=== PATIENT | female | born 1980 | race American Indian/Alaskan Native ===

== ENCOUNTER 2016-12-31 09:07 | Inpatient (IN) | payer MEDICAID, OTHER ==
[2016-12-31] MEDS ORDERED: Penicillin G Potassium 5,000,000 Unit Vial ONE (09:17)
[2016-12-31] MEDS ORDERED: Penicillin G Potassium 5 MILLUNITS in Sodium Chloride 0.9% 100 ML IV ONE (09:43)
[2016-12-31] MEDS ORDERED: Oxytocin/Normal Saline 30 UNIT/500 ML BAG IV SCH (09:45)
[2016-12-31] MEDS ORDERED: Lactated Ringers 1,000 ML IV SCH ×2 (09:45→12:00)
[2016-12-31] MEDS ORDERED: Methylergonovine 0.2 MG/1 ML Amp ONE (10:18)
[2016-12-31] MEDS ORDERED: Carboprost Tromethamine 250 MCG/1 ML Amp ONE (10:18)
[2016-12-31] MEDS ORDERED: Misoprostol 400 MCG (4 X 100 MCG TAB) ONE (10:18)
[2016-12-31] MEDS ORDERED: Acetaminophen 325 MG Tab PO PRN (11:56)
[2016-12-31] MEDS ORDERED: Ondansetron 4 MG/2 ML SDV IV PRN (11:56)
[2016-12-31] MEDS ORDERED: Sodium Chloride 0.9% 10 ML Syringe FLUSH PRN (11:56)
[2016-12-31] MEDS ORDERED: Misoprostol 400 MCG (4 X 100 MCG TAB) RECTAL PRN (11:56)
[2016-12-31] MEDS ORDERED: Methylergonovine 0.2 MG/1 ML Amp IM PRN (11:56)
[2016-12-31] MEDS ORDERED: Benzocaine/Menthol 20%-0.5% Spray 56 GM Canister TOP PRN (12:04)
[2016-12-31] MEDS ORDERED: Zolpidem 5 MG Tab PO PRN (12:04)
[2016-12-31] MEDS ORDERED: Simethicone 80 MG Tab.Chew PO PRN (12:04)
--- NOTE | 2016-12-31 12:14 | PCM.LDHP ---
L&D History of Present Illness - General Date of Service: 12/31/16 Admit Problem/Dx: Patient Status Order with Admit Dx/Problem 12/31/16 11:56 Patient Status [ADT] Routine Admission Diagnosis/Problem Admission Diagnosis/Problem Labor established 12/31/16 12:09 by [facility] with onset labor contractions @ 4am and leaking fluid 430 am. Source of Information: Patient, EMS, Family, Old Records History Limitations: Reports: No Limitations - History of Present Illness Location, : Reports: Uterus Severity: Moderate Associated Symptoms: Reports: vaginal fluid - Related Data Allergies/Adverse Reactions: Allergies Allergy/AdvReac Type Severity Reaction Status Date / Time methocarbamol Allergy Difficulty Verified 12/11/16 13:49 Swallowing Home Medications: Home Meds Acetaminophen [Tylenol] 650 mg PO Q4H PRN #60 tablet 09/10/13 [Rx] Vit W-Ca,Fe,FA(<1 mg) [ Vitamins] 1 each PO DAILY 12/15/15 [ History] Ferrous Sulfate 2 tab PO BID 12/11/16 [History] Past Medical History - Past Health History Medical/Surgical History: Denies Medical/Surgical History Cardiovascular History: Reports: Hypertension Gastrointestinal History: Reports: Hepatitis (Past Hep C) Genitourinary History: Reports: UTI, Recurrent Other Genitourinary History: pt reports renal failure GASTROENTEROLOGY PHYSICIAN History: Reports: , Spontaneous : 11 Para: 9 ([id number]) Other OB/BYN History: see [facility] and [facility] notes and episode for details. hmb Neurological History: Reports: Brain Injury, Headaches, Chronic Other Neuro History: Chronic Headache Psychiatric History: Reports: Addiction Hematologic History: Reports: Anemia, Blood Transfusion(s) - Infectious Disease History Infectious Disease History: Reports: Chicken Pox, Hepatitis C - Past Surgical History HEENT Surgical History: Reports: Other (See Below) Other HEENT Surgeries/Procedures: nasal fracture GI Surgical History: Reports: Cholecystectomy Dermatological Surgical History: Reports: None - History Comment History Comment: see [facility] records for details. Social & Family History - Family History Family Medical History: Noncontributory (see [facility] nots) Cardiac: Reports: Hypertension, HI Musculoskeletal: Reports: Arthritis Neurological: Reports: CVA Endocrine/Metabolic: Reports: Diabetes, type II - Tobacco Use Smoking Status *Q: Former Smoker Years of Tobacco use: 1 Used Tobacco, but Quit: Yes Month Tobacco Last Used: 10/2012 Second Hand Smoke Exposure: No - Caffeine Use Caffeine Use: Reports: Coffee (one drink every so often), Soda - Alcohol Use Days Per Week of Alcohol Use: 0 - Recreational Drug Use Recreational Drug Use: No Drug Use in Last 12 Months: Yes Recreational Drug Type: Reports: Marijuana/Hashish Recreational Drug Use Frequency: Not Used In Over 1 Month - Living Situation & Occupation Living situation: Reports: Other (Currently living with boyfriend and some of her children at her cousins place of residence. States she is working toward her GED.) Occupation: Employed ([employer]) H&P Review of Systems - Review of Systems: Review Of Systems: ROS reveals no pertinent complaints other than HPI. L&D Exam - Exam Exam: See Below - Vital Signs Weight: 181 lb - OB Specific Contraction Intensity: Mild to Moderate Movement: Active Heart Tones: Present Heart Tones per Min: 140 Heart Rate (FHR) Variability: Moderate (6-25 bmp) Presentation: Vertex Estimated Weight: AGA - Exam General: Alert, Oriented HEENT: Pupils Equal, Pupils Reactive Neck: Supple Lungs: Clear to Auscultation, Normal Respiratory Effort Cardiovascular: Regular Rate, Regular Rhythm GI/Abdominal Exam: Normal Bowel Sounds, Soft, Non-Tender Back Exam: Normal Inspection Extremities: Normal Inspection Skin: Warm, Dry, Intact Neurological: Normal Speech, Normal Tone, Sensation Intact Psychiatric: Normal Affect, Normal Mood - Patient Data Lab Results Last 24 hrs: Laboratory Results - last 24 hr 12/31/16 Range/Units 10:10 WBC 12.3 H (5.0-10.0) 10^3/uL RBC 4.71 (4.2-5.4) 10^6/uL Hgb 10.3 L (12.0-16.0) g/dL Hct 33.7 L (37.0-47.0) % MCV 71.5 L (80-100) fL MCH 21.9 L (27.0-34.0) pg MCHC 30.6 L (33.0-35.0) g/dL Plt Count 357 (150-450) 10^3/uL Result Diagrams: 12/31/16 10:10 - Problem List (1) Labor and delivery complicated by meconium in amniotic fluid SNOMED Code(s): 849367728 ICD Code: O77.0 - LABOR AND DELIVERY COMPLICATED BY MECONIUM IN AMNIOTIC FLUID Status: Acute Current Visit: Yes (2) Labor established SNOMED Code(s): 30736431 ICD Code: LVT8727 - Status: Acute Current Visit: Yes (3) Labor, precipitous, delivered SNOMED Code(s): 367218069 ICD Code: O62.3 - PRECIPITATE LABOR Status: Acute Current Visit: Yes Problem List Initiated/Reviewed/Updated: Yes Orders Last 24hrs: Active Orders 24 hr Category Date Time Status Patient Status [ADT] Routine ADT 12/31/16 11:56 Ordered Communication Order [RC] ASDIRECTED Care 12/31/16 11:56 Ordered Heart Tones [RC] PER UNIT ROUTINE Care 12/31/16 11:56 Ordered Notify Provider Vital Signs OB [RC] ASDIRECTED Care 12/31/16 11:56 Ordered Notify Provider [RC] PRN Care 12/31/16 11:56 Ordered Up ad Faith [RC] ASDIRECTED Care 12/31/16 11:56 Ordered Vital Signs [RC] PER UNIT ROUTINE Care 12/31/16 11:56 Ordered Consult to Human Factors Engineer [CONS] Routine Cons 12/31/16 12:04 Ordered Regular Diet [DIET] Diet 12/31/16 Lunch Ordered DRUG SCREEN URINE BIORAD [URCHEM] Routine Lab 12/31/16 11:56 Uncollected Acetaminophen [Tylenol] Med 12/31/16 11:56 Ordered 650 mg PO Q4H PRN Benzocaine/Menthol [Dermoplast Pain Relief [place]] Med 12/31/16 12:04 Ordered See Dose Instructions TOP Q4H PRN Docusate Sodium [Colace] Med 12/31/16 12:04 Ordered 100 mg PO BID PRN Ibuprofen [Motrin] Med 12/31/16 12:04 Ordered 800 mg PO Q8H PRN Lactated Ringers @ 125 MLS/HR(1000ml) Med 12/31/16 12:00 Ordered Lactated Ringers [Ringers, Lactated] 1,000 ml IV ASDIRECTED Lactated Ringers [Ringers, Lactated] 1,000 ml Med 12/31/16 09:45 Active IV ASDIRECTED Methylergonovine [Methergine] Med 12/31/16 11:56 Ordered 0.2 mg IM ASDIRECTED PRN Misoprostol [Cytotec] Med 12/31/16 11:56 Ordered 800 mcg RECTAL ASDIRECTED PRN Ondansetron [Zofran] Med 12/31/16 11:56 Ordered 4 mg IV Q4H PRN Oxytocin/Normal Saline [Pitocin in NS 30 UNIT/500 ML] Med 12/31/16 09:45 Active 30 unit in 500 ml IV TITRATE Vit with Ca/FA/Iron [ Plus Iron] Med 01/01/17 09:00 Ordered 1 each PO DAILY Simethicone Med 12/31/16 12:04 Ordered 80 mg PO Q4H PRN Sodium Chloride 0.9% [Saline Flush] Med 12/31/16 11:56 Ordered 10 ml FLUSH ASDIRECTED PRN Zolpidem [Ambien] Med 12/31/16 12:04 Ordered 5 mg PO BEDTIME PRN Assess Lochia [WOMSER] Per Unit Routine Oth 12/31/16 12:04 Ordered Assess Uterine Involution [WOMSER] Per Unit Routine Oth 12/31/16 12:04 Ordered Breast Pump [WOMSER] Per Unit Routine Oth 12/31/16 12:04 Ordered Ice Therapy [OM.PC] Per Unit Routine Oth 12/31/16 12:04 Ordered Perineal Care [OM.PC] Per Unit Routine Oth 12/31/16 12:04 Ordered Saline Lock Insert [OM.PC] Routine Oth 12/31/16 11:56 Ordered Sitz Bath [OM.PC] Per Unit Routine Oth 12/31/16 12:04 Ordered Resuscitation Status Routine Resus Stat 12/31/16 11:56 Ordered Medication Orders Acetaminophen (Tylenol) 650 mg PO Q4H PRN PRN Reason: Pain (Mild 1-3) and fever Benzocaine/Menthol (Dermoplast Pain Relief [place]) 0 gm TOP Q4H PRN PRN Reason: Perineal comfort measures Docusate Sodium (Colace) 100 mg PO BID PRN PRN Reason: Constipation Lactated Ringer's (Ringers, Lactated) 1,000 mls @ 125 mls/hr IV ASDIRECTED MARY Last Admin: 12/31/16 09:45 Dose: 125 mls/hr Oxytocin/Sodium Chloride (Pitocin In Ns 30 Unit/500 Ml) 30 unit in 500 mls @ 2 mls/hr IV TITRATE MARY; 2 MUNITS/MIN PRN Reason: Protocol Last Titration: 12/31/16 11:17 Dose: 250 munits/min, 250 mls/hr Admin: 12/31/16 10:56 Dose: 500 munits/min, 500 mls/hr Lactated Ringer's (Ringers, Lactated) 1,000 mls @ 125 mls/hr IV ASDIRECTED MARY Ibuprofen (Motrin) 800 mg PO Q8H PRN PRN Reason: Mild Pain or Fever Methylergonovine Maleate (Methergine) 0.2 mg IM ASDIRECTED PRN PRN Reason: Hemorrhage Misoprostol (Cytotec) 800 mcg RECTAL ASDIRECTED PRN PRN Reason: Hemorrhage Ondansetron HCl (Zofran) 4 mg IV Q4H PRN PRN Reason: Nausea/Vomiting Prenat Multivit/Rooks/Iron/Folic Ac ( Plus Iron) 1 each PO DAILY MARY Simethicone (Simethicone) 80 mg PO Q4H PRN PRN Reason: Gas Sodium Chloride (Saline Flush) 10 ml FLUSH ASDIRECTED PRN PRN Reason: Keep Vein Open Zolpidem Tartrate (Ambien) 5 mg PO BEDTIME PRN PRN Reason: Insomnia Assessment/Plan Comment:: Assessment/Plan: 36 yo NA , AMA 38w6d in active labor GBS positive--start PCN O + blood type Rubella immune Hep C + THC + in drug screen--will do mec screen on baby high risk hx prior demise/still born, delivery, transfusion reaction Marya admitted with routine admit orders. planning intrathecal start PCN. further management pending her course in labor. hmb
--- NOTE | 2016-12-31 12:25 | PCM.DEL ---
L & D Note - General Info Date of Service: 12/31/16 (time of 1042) Mother's Due Date: 01/08/17 - Delivery Note Labor: Spontaneous Delivery Outcome: Livebirth Infant Delivery Method: Spontaneous Vaginal Delivery-Single Infant Delivery Mode: Spontaneous Presentation: Vertex Nuchal Cord: None Anesthesia Type: None Amniotic Fluid Description: malodorous Episiotomy Type: None Laceration: None Cord: 3 Vessels Estimated Blood Loss: 100 Resuscitation Needed: No : Stimulated, Warmed Provider: Karla Seymour Score 1 min: 8 Score 5 min: 9 Delivery Comments (Free Text/Narrative):: precipitous vaginal delivery in bed, unmedicated, uncomplicated. baby to mother's chest for skin to skin contact. Induction Criteria - Augmentation Estimated Pelvis: Reports: Adequate Weight Estimated:: Reports: AGA Reassuring Monitoring Strip: Yes - General Info Date of Service: 12/31/16 Admission Dx/Problem (Free Text): Patient Status Order with Admit Dx/Problem 12/31/16 11:56 Patient Status [ADT] Routine Admission Diagnosis/Problem Admission Diagnosis/Problem Labor established 12/31/16 12:09 by [facility] with onset labor contractions @ 4am and leaking fluid 430 am. - Review of Systems General: Reports: No Symptoms HEENT: Reports: No Symptoms Pulmonary: Reports: No Symptoms Cardiovascular: Reports: No Symptoms Gastrointestinal: Reports: No Symptoms Genitourinary: Reports: No Symptoms Musculoskeletal: Reports: No Symptoms Skin: Reports: No Symptoms Neurological: Reports: No Symptoms Psychiatric: Reports: No Symptoms - Patient Data Weight - Most Recent: 181 lb Lab Results Last 24 Hours: Laboratory Results - last 24 hr 12/31/16 Range/Units 10:10 WBC 12.3 H (5.0-10.0) 10^3/uL RBC 4.71 (4.2-5.4) 10^6/uL Hgb 10.3 L (12.0-16.0) g/dL Hct 33.7 L (37.0-47.0) % MCV 71.5 L (80-100) fL MCH 21.9 L (27.0-34.0) pg MCHC 30.6 L (33.0-35.0) g/dL Plt Count 357 (150-450) 10^3/uL Med Orders - Current: Current Medications Acetaminophen (Tylenol) 650 mg PO Q4H PRN PRN Reason: Pain (Mild 1-3) and fever Benzocaine/Menthol (Dermoplast Pain Relief [place]) 0 gm TOP Q4H PRN PRN Reason: Perineal comfort measures Docusate Sodium (Colace) 100 mg PO BID PRN PRN Reason: Constipation Lactated Ringer's (Ringers, Lactated) 1,000 mls @ 125 mls/hr IV ASDIRECTED MARY Last Admin: 12/31/16 09:45 Dose: 125 mls/hr Oxytocin/Sodium Chloride (Pitocin In Ns 30 Unit/500 Ml) 30 unit in 500 mls @ 2 mls/hr IV TITRATE MARY; 2 MUNITS/MIN PRN Reason: Protocol Last Titration: 12/31/16 11:17 Dose: 250 munits/min, 250 mls/hr Lactated Ringer's (Ringers, Lactated) 1,000 mls @ 125 mls/hr IV ASDIRECTED MARY Ibuprofen (Motrin) 800 mg PO Q8H PRN PRN Reason: Mild Pain or Fever Methylergonovine Maleate (Methergine) 0.2 mg IM ASDIRECTED PRN PRN Reason: Hemorrhage Misoprostol (Cytotec) 800 mcg RECTAL ASDIRECTED PRN PRN Reason: Hemorrhage Ondansetron HCl (Zofran) 4 mg IV Q4H PRN PRN Reason: Nausea/Vomiting Prenat Multivit/[place]/Iron/Folic Ac ( Plus Iron) 1 each PO DAILY [facility] Simethicone (Simethicone) 80 mg PO Q4H PRN PRN Reason: Gas Sodium Chloride (Saline Flush) 10 ml FLUSH ASDIRECTED PRN PRN Reason: Keep Vein Open Zolpidem Tartrate (Ambien) 5 mg PO BEDTIME PRN PRN Reason: Insomnia Discontinued Medications Carboprost Tromethamine (Hemabate Ds) Confirm Administered Dose 250 mcg .ROUTE .STK-MED ONE Stop: 12/31/16 10:19 Penicillin G Potassium 5 (millunits/ Sodium Chloride) 100 mls @ 200 mls/hr IV ONETIME ONE Stop: 12/31/16 10:12 Last Admin: 12/31/16 09:45 Dose: 200 mls/hr Methylergonovine Maleate (Methergine) Confirm Administered Dose 0.2 mg .ROUTE .STK-MED ONE Stop: 12/31/16 10:19 Misoprostol (Cytotec) Confirm Administered Dose 400 mcg .ROUTE .STK-MED ONE Stop: 12/31/16 10:19 Penicillin G Potassium (Pfizerpen) Confirm Administered Dose 5 millunits .ROUTE .STK-MED ONE Stop: 12/31/16 09:18 Last Admin: 12/31/16 10:26 Dose: Not Given - Exam General: Alert, Oriented HEENT: Pupils Equal, Pupils Reactive, EOMI, Mucous Membr. Moist/[place] Neck: Supple Lungs: Clear to Auscultation, Normal Respiratory Effort Cardiovascular: Regular Rate, Regular Rhythm GI/Abdominal Exam: Normal Bowel Sounds, Soft, Non-Tender, No Organomegaly, No Distention, No Abnormal Bruit, No Mass, Pelvis Stable (Female) Exam: Normal External Exam, Normal Speculum Exam, Normal Bimanual Exam Back Exam: Normal Inspection, Full Range of Motion Extremities: Normal Inspection, Normal Range of Motion, Non-Tender, No Pedal Edema, Normal Capillary Refill Skin: Warm, Dry, Intact Wound/Incisions: Healing Well Neurological: No New Focal Deficit Psy/Mental Status: Alert, Normal Affect, Normal Mood - Problem List & Annotations (1) Labor and delivery complicated by meconium in amniotic fluid SNOMED Code(s): 662153179 Code(s): O77.0 - LABOR AND DELIVERY COMPLICATED BY MECONIUM IN AMNIOTIC FLUID Status: Acute Current Visit: Yes (2) Labor established SNOMED Code(s): 22297410 Code(s): UYC4781 - Status: Acute Current Visit: Yes (3) Labor, precipitous, delivered SNOMED Code(s): 811532503 Code(s): O62.3 - PRECIPITATE LABOR Status: Acute Current Visit: Yes - Problem List Review Problem List Initiated/Reviewed/Updated: Yes - My Orders Last 24 Hours: My Active Orders 12/31/16 09:45 Lactated Ringers [Ringers, Lactated] 1,000 ml IV ASDIRECTED Oxytocin/Normal Saline [Pitocin in NS 30 UNIT/500 ML] 30 unit in 500 ml IV TITRATE 12/31/16 11:56 Patient Status [ADT] Routine Communication Order [RC] ASDIRECTED Heart Tones [RC] PER UNIT ROUTINE Notify Provider Vital Signs OB [RC] ASDIRECTED Notify Provider [RC] PRN Up ad Faith [RC] ASDIRECTED Vital Signs [RC] PER UNIT ROUTINE DRUG SCREEN URINE BIORAD [URCHEM] Routine Acetaminophen [Tylenol] 650 mg PO Q4H PRN Methylergonovine [Methergine] 0.2 mg IM ASDIRECTED PRN Misoprostol [Cytotec] 800 mcg RECTAL ASDIRECTED PRN Ondansetron [Zofran] 4 mg IV Q4H PRN Sodium Chloride 0.9% [Saline Flush] 10 ml FLUSH ASDIRECTED PRN Saline Lock Insert [OM.PC] Routine Resuscitation Status Routine 12/31/16 12:00 Lactated Ringers @ 125 MLS/HR(1000ml) Lactated Ringers [Ringers, Lactated] 1, 000 ml IV ASDIRECTED 12/31/16 12:04 Consult to Backbreaker [CONS] Routine Benzocaine/Menthol [Dermoplast Pain Relief [place]] See Dose Instructions TOP Q4H PRN Docusate Sodium [Colace] 100 mg PO BID PRN Ibuprofen [Motrin] 800 mg PO Q8H PRN Simethicone 80 mg PO Q4H PRN Zolpidem [Ambien] 5 mg PO BEDTIME PRN Assess Lochia [WOMSER] Per Unit Routine Assess Uterine Involution [WOMSER] Per Unit Routine Breast Pump [WOMSER] Per Unit Routine Ice Therapy [OM.PC] Per Unit Routine Perineal Care [OM.PC] Per Unit Routine Sitz Bath [OM.PC] Per Unit Routine 12/31/16 Lunch Regular Diet [DIET] 01/01/17 09:00 Vit with Ca/FA/Iron [ Plus Iron] 1 each PO DAILY - Plan Plan:: Assessment/Plan: 36 yo NA , AMA 38w6d in active labor GBS positive--start PCN O + blood type Rubella immune Hep C + THC + in drug screen--will do mec screen on baby high risk hx prior demise/still born, delivery, transfusion reaction Marya admitted with routine admit orders. planning intrathecal start PCN. further management pending her course in labor. hmb Delivery info: delivered precipitously in bed: viable male, 5lb 12oz, 2630g APGARs 8 & 9 time of 1042 doing well. routine PP and mursery cares for mom and baby. skin to skin at mother's chest. consult. mec screen ordered. mother requesting discharge home tomorrow after 24 hours. Allq eustions answered. family happy with plan. b
[2016-12-31] MEDS: Ibuprofen 800 MG Tab PO PRN (15:05)
[2016-12-31] MEDS: Docusate Sodium 100 MG Cap PO PRN (19:32)
[2017-01-01] MEDS: Ibuprofen 800 MG Tab PO PRN ×3 (02:42→20:30)
[2017-01-01] MEDS: Prenatal Multivitamin with Calcium/Folic Acid/Iron Tab PO SCH (10:57)
--- NOTE | 2017-01-01 14:51 | PCM.SN ---
- Free Text/Narrative Note: DOS: 01-01-17 Marya is doing well PPD #1 s/p precipitous spontaneous vaginal delivery viable male. nursing and has seen portfolio consultant. flow decreased. eating, voiding and ambulating well. VSS afebrile. fundus firm skin warm and dry. She was considering going home later today, but has decided to stay until tomorrow, PPD #2. continue routine cares. will check CBC in a.m. likely discharge home tomorrow with baby. UDS negative on admit. All questions answered. hmb
[2017-01-01] MEDS: Docusate Sodium 100 MG Cap PO PRN (20:30)
[2017-01-02] MEDS: Ibuprofen 800 MG Tab PO PRN (05:04)
[2017-01-02] MEDS: Prenatal Multivitamin with Calcium/Folic Acid/Iron Tab PO SCH (08:26)
[2017-01-02 11:45] VITALS: BP 112/59
--- NOTE | 2017-05-10 07:19 | DISCH ---
DIAGNOSES: 1. A 36-year-old 11, para 9-1-1-9. 2. Advanced maternal age. 3. 38 weeks 6 days. 4. Spontaneous precipitous vaginal delivery. 5. Group B Streptococcus positive, received penicillin prophylaxis. 6. Blood type O positive. 7. Rubella immune. 8. Hepatitis C positive. 9. Positive drug screen for tetrahydrocannabinol with meconium screen positive for alcohol and tetrahydrocannabinol. 10.High-risk . 11.Viable male , 2630 g/5 pounds 12.5 ounces. 12. mother. 13. anemia. FINDINGS: Marya is a 36-year-old 11, para 8-1-1-8, who presented by [facility] with complaints of spontaneous rupture of membranes at 4:00 with onset of contractions at 4:30. She was brought straight back to OB. Please see her notes in Epic and her admission H and P for further details. The patient delivered precipitously spontaneous vaginal delivery of viable male infant weighing 2630 g/5 pounds 12.5 ounces with scores of 8 and 9 without complications. She was group B strep positive and did receive 1 dose of penicillin prior to delivery. Baby was placed [id number] immediately after delivery. Baby is . The time of was 1042 hours on 12/31/2016. The consult was ordered as was meconium screen testing. Her course was essentially unremarkable. She remained afebrile with stable vital signs. Was voiding, ambulating, and eating without difficulty. Her urine drug screen was negative on admit. Her fundus remained firm, and her flow was decreasing. On admit, her hemoglobin was 10.3 with a recheck on the day of discharge of 9.8. Platelet counts were 357 and 335. White count on admit 12.3 with a recheck of 8.7 on the day of discharge. On 01/02/2017, she was seen and felt to be ready for discharge. Her physical exam was within normal limits for day #2, and she was discharged home in stable condition. She will follow up for a 6-week check and sooner with any problems. Routine discharge instructions and orders to be followed. May use ibuprofen or [id number] Tylenol as needed for cramping or discomfort. Continue with iron supplementation and vitamins. Will follow up as scheduled for routine care and sooner p.r.n., and all her questions were answered. Please see her nursing notes and care notes for further details. MODL /[id number]
== END 2017-01-02 10:50 | disposition home or self-care (01) | DRG 775 ==
LOC: DL.OBCHECK 09:07 → DL.OB 09:11 → OBSVTOIN 10:42
PROVIDERS: ADMIT Family Medicine; ATTEND Family Medicine
PROC: 10E0XZZ Delivery of Products of Conception, External Approach (ICD-10-PCS; principal; 2016-12-31)
PROC: 3E0234Z Introduction of Serum, Toxoid and Vaccine into Muscle, Percutaneous Approach (ICD-10-PCS; 2016-12-31)
PROC: 4A1HXFZ Monitoring of Products of Conception, Cardiac Rhythm, External Approach (ICD-10-PCS; 2016-12-31)
DX: O62.3 Precipitate labor (principal); O99.324 Drug use complicating childbirth; Z37.0 Single live birth; O99.824 Streptococcus B carrier state complicating childbirth; F15.90 Other stimulant use, unspecified, uncomplicated; Z3A.38 38 weeks gestation of pregnancy; Z23 Encounter for immunization; O77.0 Labor and delivery complicated by meconium in amniotic fluid
CPT/HCPCS: 36415; 59409; 80305; 85027; A9270-GY; J2540; J2590; J7050; J7120

== ENCOUNTER 2018-08-11 16:16 | Emergency (ER) | payer MEDICAID ==
[2018-08-11 16:57] VITALS: BP 144/93
[2018-08-11 17:56] LABS: ANION GAP 14.8; CHLORIDE,CL 106 mmol/L (101-111); SODIUM,NA 138 mmol/L (135-145)
--- NOTE | 2018-08-21 13:35 | EDM.PDOC ---
Scribed by Radha Renae 08/11/18 [id number] for Emily Charles NP ED HPI GENERAL MEDICAL PROBLEM - General Chief Complaint: Genitourinary Problem Stated Complaint: UNKNOWN Time Seen by Provider: 08/11/18 17:00 Source of Information: Reports: Patient, RN, RN Notes Reviewed History Limitations: Reports: No Limitations - History of Present Illness INITIAL COMMENTS - FREE TEXT/NARRATIVE: Patient presents to ER per private vehicle. States she called the clinic for her that she felt was getting ill. Patient states she delivered the baby at home on 08/02/18. No care and no post care. Patient denies headaches, nausea, vomiting, diarrhea, fever, chills, chest pain , or shortness of breath. States she has "sweats and sees white spots" sometimes after standing up. Admits to some stomach cramping at times. States she passed placenta. States vaginal bleeding off and on. Severity: Mild Improves with: Reports: None Worsens with: Reports: None Associated Symptoms: Reports: No Other Symptoms - Related Data Allergies Allergy/AdvReac Type Severity Reaction Status Date / Time methocarbamol Allergy Difficulty Verified 08/11/18 16:45 Swallowing Home Meds: Home Meds Acetaminophen [Tylenol] 975 mg PO Q4H PRN 08/11/18 [History] Past Medical History - Past Health History Medical/Surgical History: Denies Medical/Surgical History Cardiovascular History: Reports: Hypertension Gastrointestinal History: Reports: Hepatitis Genitourinary History: Reports: UTI, Recurrent Other Genitourinary History: pt reports renal failure PAPER HANGER History: Reports: , Spontaneous Other PAPER HANGER History: see [facility] and [facility] notes and episode for details. hmb Neurological History: Reports: Brain Injury, Headaches, Chronic Other Neuro History: Chronic Headache Psychiatric History: Reports: Addiction Hematologic History: Reports: Anemia, Blood Transfusion(s) - Infectious Disease History Infectious Disease History: Reports: Chicken Pox, Hepatitis C - Past Surgical History HEENT Surgical History: Reports: Other (See Below) Other HEENT Surgeries/Procedures: nasal fracture GI Surgical History: Reports: Cholecystectomy Dermatological Surgical History: Reports: None - History Comment History Comment: see [facility] records for details. Social & Family History - Family History Family Medical History: Noncontributory Cardiac: Reports: Hypertension, [place] Musculoskeletal: Reports: Arthritis Neurological: Reports: CVA Endocrine/Metabolic: Reports: Diabetes, type II - Caffeine Use Caffeine Use: Reports: Coffee, Energy Drinks, Soda, Tea - Living Situation & Occupation Living situation: Reports: Other (Currently living with boyfriend and some of her children at her cousins place of residence. States she is working toward her GED.) Occupation: Employed ([employer]) ED ROS GENERAL - Review of Systems Review Of Systems: ROS reveals no pertinent complaints other than HPI. ED EXAM, RENAL/ - Physical Exam Exam: See Below Exam Limited By: No Limitations General Appearance: Alert, WD/WN, No Apparent Distress Eye Exam: Bilateral Eye: EOMI, Normal Inspection, PERRL Ears: Normal External Exam, Normal Canal, Hearing Grossly Normal, Normal TMs Nose: Normal Inspection, Normal Mucosa, No Blood Throat/Mouth: Normal Inspection, Normal Lips, Normal Teeth, Normal Gums, Normal Oropharynx, Normal Voice, No Airway Compromise Head: Atraumatic, Normocephalic Neck: Normal Inspection, Supple, Non-Tender, Full Range of Motion Respiratory/Chest: No Respiratory Distress, Lungs Clear, Normal Breath Sounds, No Accessory Muscle Use, Chest Non-Tender Cardiovascular: Normal Peripheral Pulses, Regular Rate, Rhythm, No Edema, No Gallop, No JVD, No Murmur, No Rub GI/Abdominal: Tender (Female) Exam: Other (patient refused) Rectal (Female) Exam: Deferred Back Exam: Normal Inspection, Full Range of Motion, NT Extremities: Normal Inspection, Normal Range of Motion, Non-Tender, Normal Capillary Refill, No Pedal Edema Neurological: Alert, Oriented, CN II-XII Intact, Normal Cognition, Normal Gait, Normal Reflexes, No Motor/Sensory Deficits Psychiatric: Anxious Skin Exam: Warm, Dry, Intact, Normal Color, No Rash Lymphatic: No Adenopathy Course - Vital Signs Last Recorded V/S: Last Vital Signs Temp 97.1 F 08/11/18 16:37 Pulse 80 08/11/18 16:52 Resp 16 08/11/18 16:52 BP 144/93 H 08/11/18 16:52 Pulse Ox 99 08/11/18 16:52 Orthostatic Blood Pressure [ 142/82 Supine] Orthostatic Blood Pressure [ 136/103 Standing] - Orders/Labs/Meds Orders: Active Orders 24 hr Category Date Time Status CULTURE URINE [RM] Stat Lab 08/11/18 17:46 Received PROTEIN/CREATININE RATIO,URINE [URCHEM] Routine Lab 08/11/18 17:46 Received UA W/MICROSCOPIC [URIN] Stat Lab 08/11/18 17:46 Results Labs: Laboratory Tests 08/11/18 08/11/18 08/11/18 Range/Units 17:23 17:23 17:23 WBC 8.2 (5.0-10.0) 10^3/uL RBC 4.53 (4.2-5.4) 10^6/uL Hgb 8.1 L (12.0-16.0) g/dL Hct 29.3 L (37.0-47.0) % MCV 64.7 L D (80-100) fL MCH 17.9 L (27.0-34.0) pg MCHC 27.6 L (33.0-35.0) g/dL Plt Count 503 H D (150-450) 10^3/uL Neut % (Auto) 55.5 (42.2-75.2) % Lymph % (Auto) 37.3 (20.5-50.1) % [place] % (Auto) 5.0 (2-8) % Eos % (Auto) 2.0 (1.0-3.0) % Baso % (Auto) 0.2 (0.0-1.0) % Sodium 138 (135-145) mmol/L Potassium 3.8 (3.6-5.0) mmol/L Chloride 106 (101-111) mmol/L Carbon Dioxide 21.0 (21.0-31.0) mmol/L Anion Gap 14.8 BUN 13 (7-18) mg/dL Creatinine 0.5 L (0.6-1.3) mg/dL Est Cr Clr Drug Dosing 130.44 mL/min Estimated GFR (MDRD) > 60 BUN/Creatinine Ratio 26.00 Glucose 99 (74-105) mg/dL Uric Acid 4.3 (2.6-7.2) mg/dL Calcium 8.4 (8.4-10.2) mg/dl Total Bilirubin 0.5 (0.2-1.0) mg/dL AST 17 (10-42) IU/L ALT 14 (10-60) IU/L Alkaline Phosphatase 85 (42-121) IU/L Lactate Dehydrogenase 169 (91-180) IU/L Total Protein 8.1 (6.7-8.2) g/dl Albumin 3.3 (3.2-5.5) g/dl Globulin 4.8 Albumin/Globulin Ratio 0.69 Urine Color (YELLOW) Urine Appearance (CLEAR) Urine pH (5.0-9.0) Ur Specific [place] (1.005-1.030) Urine Protein (NEGATIVE) Urine Glucose (UA) (NEGATIVE) Urine Ketones (NEGATIVE) Urine Occult Blood (NEGATIVE) Urine Nitrite (NEGATIVE) Urine Bilirubin (NEGATIVE) Urine Urobilinogen (0.2-1.0) mg/dL Ur Leukocyte Esterase (NEGATIVE) Urine Opiates Screen (NEGATIVE) Ur Oxycodone Screen (NEGATIVE) Urine Methadone Screen (NEGATIVE) Ur Barbiturates Screen (NEGATIVE) U Tricyclic Antidepress (NEGATIVE) Ur Phencyclidine Scrn (NEGATIVE) Ur Amphetamine Screen (NEGATIVE) U Methamphetamines Scrn (NEGATIVE) Urine MDMA Screen (NEGATIVE) U Benzodiazepines Scrn (NEGATIVE) Urine Cocaine Screen (NEGATIVE) U Marijuana (THC) Screen (NEGATIVE) Ethyl Alcohol < 5 mg/dL 08/11/18 08/11/18 Range/Units 17:46 17:46 WBC (5.0-10.0) 10^3/uL RBC (4.2-5.4) 10^6/uL Hgb (12.0-16.0) g/dL Hct (37.0-47.0) % MCV (80-100) fL MCH (27.0-34.0) pg MCHC (33.0-35.0) g/dL Plt Count (150-450) 10^3/uL Neut % (Auto) (42.2-75.2) % Lymph % (Auto) (20.5-50.1) % [place] % (Auto) (2-8) % Eos % (Auto) (1.0-3.0) % Baso % (Auto) (0.0-1.0) % Sodium (135-145) mmol/L Potassium (3.6-5.0) mmol/L Chloride (101-111) mmol/L Carbon Dioxide (21.0-31.0) mmol/L Anion Gap BUN (7-18) mg/dL Creatinine (0.6-1.3) mg/dL Est Cr Clr Drug Dosing mL/min Estimated GFR (MDRD) BUN/Creatinine Ratio Glucose (74-105) mg/dL Uric Acid (2.6-7.2) mg/dL Calcium (8.4-10.2) mg/dl Total Bilirubin (0.2-1.0) mg/dL AST (10-42) IU/L ALT (10-60) IU/L Alkaline Phosphatase (42-121) IU/L Lactate Dehydrogenase (91-180) IU/L Total Protein (6.7-8.2) g/dl Albumin (3.2-5.5) g/dl Globulin Albumin/Globulin Ratio Urine Color Yellow (YELLOW) Urine Appearance Slightly cloudy (CLEAR) Urine pH 6.0 (5.0-9.0) Ur Specific [place] 1.025 (1.005-1.030) Urine Protein 30 H (NEGATIVE) Urine Glucose (UA) Negative (NEGATIVE) Urine Ketones Negative (NEGATIVE) Urine Occult Blood Trace-intact H (NEGATIVE) Urine Nitrite Negative (NEGATIVE) Urine Bilirubin Negative (NEGATIVE) Urine Urobilinogen 0.2 (0.2-1.0) mg/dL Ur Leukocyte Esterase Small H (NEGATIVE) Urine Opiates Screen Negative (NEGATIVE) Ur Oxycodone Screen Negative (NEGATIVE) Urine Methadone Screen Negative (NEGATIVE) Ur Barbiturates Screen Negative (NEGATIVE) U Tricyclic Antidepress Negative (NEGATIVE) Ur Phencyclidine Scrn Negative (NEGATIVE) Ur Amphetamine Screen Positive H (NEGATIVE) U Methamphetamines Scrn Positive H (NEGATIVE) Urine MDMA Screen Negative (NEGATIVE) U Benzodiazepines Scrn Negative (NEGATIVE) Urine Cocaine Screen Negative (NEGATIVE) U Marijuana (THC) Screen Positive H (NEGATIVE) Ethyl Alcohol mg/dL - Re-Assessments/Exams Free Text/Narrative Re-Assessment/Exam: 08/11/18 17:39 Patient refused vaginal exam. States she would prefer to Dr. Seymour to do it. Departure - Departure Time of Disposition: 18:11 Disposition: Home, Self-Care 01 Condition: Fair Clinical Impression: care declined, Methamphetamine abuse, Marijuana abuse Anemia Qualifiers: Anemia type: unspecified type Qualified Code(s): D64.9 - Anemia, unspecified - Discharge Information *PRESCRIPTION DRUG MONITORING PROGRAM REVIEWED*: No *COPY OF PRESCRIPTION DRUG MONITORING REPORT IN PATIENT JAMES: No Instructions: Stimulant Use Disorder-Methamphetamines, Anemia, Hypertension Forms: ED Department Discharge Additional Instructions: RX: Iron, vitamin Drink plenty of fluids Follow up with your primary care facility - My Orders Last 24 Hours: My Active Orders 08/11/18 17:46 CULTURE URINE [RM] Stat PROTEIN/CREATININE RATIO,URINE [URCHEM] Routine UA W/MICROSCOPIC [URIN] Stat - Assessment/Plan Last 24 Hours: My Active Orders 08/11/18 17:46 CULTURE URINE [RM] Stat PROTEIN/CREATININE RATIO,URINE [URCHEM] Routine UA W/MICROSCOPIC [URIN] Stat I have read and agree with the documentation that has been completed regarding this visit. By signing this record, I attest that the documentation was completed in my physical presence and is an accurate record of the encounter.
== END 2018-08-11 18:54 | disposition home or self-care (01) ==
LOC: DL.ED 16:16
DX: O99.03 Anemia complicating the puerperium (principal); F15.10 Other stimulant abuse, uncomplicated; F12.10 Cannabis abuse, uncomplicated; I10 Essential (primary) hypertension; Z88.8 Allergy status to other drugs, medicaments and biological substances
CPT/HCPCS: 36415; 80053; 80305; 81001; 82570; 83615; 84156; 84550; 85025; 87086; 99283; G0480